=== PATIENT | female | born 1965 | race Caucasian/White ===

== ENCOUNTER → 2023-12-23 12:38 | Outpatient (REF) | payer OTHER, SELFPAY | LOC: HWRAD 12:38 | PROVIDERS: ATTENDING PHYSICIAN Hospitalist; FAMILY PHYSICIAN Nurse Practitioner Primary Care | DX: Z78.0 Asymptomatic menopausal state (principal); Z79.811 Long term (current) use of aromatase inhibitors | CPT/HCPCS: 77080 ==

== ENCOUNTER 2024-01-01 10:51 | Emergency (ER) | payer OTHER, SELFPAY ==
[2024-01-01] VITALS (10 sets, daily range): BP systolic 94–128; BP diastolic 51–81; PULSE 62–75; BMI 23.4
--- NOTE | 2024-01-01 11:36 | ED.GENMED ---
History of Present Illness
General
Chief Complaint: Dizziness
Time Seen by Provider: 01/01/24 11:36
Travel History
Have you had any contact with someone who has COVID-19?: No
Do you have any symptoms of coronavirus? Fever > 100 degrees, chills, cough, shortness of breath, sore throat, loss of taste or smell, muscle aches, or headache?: No
History of Present Illness
History of Present Illness:
HPI: The patient presents from radiation oncology due to concerns of abnormal sensation of the head. She describes it as a 'swooning' sensation. She has had bilateral mastectomy and has had radiation on the right side. She also reports some
left-sided sensation of the chest described as 'heat'. She said the symptoms frequently happen while she is standing but not necessarily just after she stands up
EXAM:
GENERAL: Well appearing in no distress, I did have the patient stand and her heart rate and blood pressure did not significantly change
HEENT: Moist oral mucosa
CARDIOVASCULAR: No murmurs, normal heart rate and rhythm, No chest wall tenderness
PULMONARY: No respiratory distress, breath sounds are clear and equal
ABDOMEN: Soft with no peritoneal signs, no tenderness
NEUROLOGIC: Excellent strength all extremities, no coordination deficits
PSYCHIATRIC: Appropriate mental status, normal insight and judgement
EXTREMITIES: Nontender, no edema, moves all extremities equally
SKIN: No rash, no lesions
ED COURSE:
11:45 AM: I initially evaluated patient
NUMBER AND COMPLEXITY OF PROBLEMS ADDRESSED AT THE ENCOUNTER
� Chronic conditions affecting care: Breast cancer
� Acute Exacerbation and/or Progression of Chronic Illness: This is an acute problem
� Differential Diagnosis includes: Dehydration, GREGORIO, anemia, metastatic disease, ACS unlikely
AMOUNT AND/OR COMPLEXITY OF DATA TO BE REVIEWED AND ANALYZED
� I performed an independent evaluation of and my interpretation is:
EKG: Sinus 63, normal axis, no acute ST abnormality
CT:
X-rays:
Laboratory Studies: White count slightly low at 3.7, chemistries unremarkable, troponin unremarkable
Other:
� Review of other/old records: Last neuroimaging of the brain was in May 2023 which was unremarkable at that time
� Clinical information was obtained by an independent historian:
� Prescriptions/Medications Considered but not given:
� Further testing considered but not performed:
RISK OF COMPLICATIONS AND/OR MORBIDITY OR MORTALITY OF PATIENT MANAGEMENT
� Social determinants of health affecting care: Lives at home
� Discussion with other providers: I reviewed the note by Dr. Rashida Kaufman and she did have some concern for cardiac etiology
� Escalation of care including admission/observation vs risk of discharge considered: EKG and troponin are normal. Brain CT was obtained given the patient's malignancy history which does not show any signs of masses by
noncontrast CT. The patient is very well-appearing and workup is unremarkable.
Past History
Past History
ED Past Medical History: None and Other (Patient has had past chest pain which was negative for cardiac disease.)
ED Past Surgical History: Other (Noncontributory)
Social History
Tobacco: Non-smoker
Alcohol: Occasional
Drug: None
Personal:
Living: with family
Employment: Employed
Family History
Family History: Other (Noncontributory)
Phy Exam
Physical Exam
Physical Exam:
See HPI
Course
Orders/Labs/Results
Orders:
Orders
01/01/24 11:00
Electrocardiogram (*1) Urgent
Reason for Study: Vertigo / Dizzy
01/01/24 11:01
EKG- Treatment ONCE
01/01/24 11:44
CMP [Comprehensive Metabolic Panel] Urgent
Complete Blood Count/With Diff Urgent
01/01/24 12:00
CT Head W/o Iv Contrast Urgent
Comment:
Reason For Exam: breast CA, new dizziness
01/01/24 12:01
0.9% Sodium Chloride 1000 ml [Nss] 1,000 ml IV BOLUS
01/01/24 12:30
Troponin I Urgent
Abnormal Lab Results
01/01/24
11:44
WBC 3.7 L 10^3/uL
(4.8-10.8)
Monocytes % 14.7 H %
(1.7-9.3)
Carbon Dioxide 31 H mmol/L
(22-30)
01/01/24 11:44
01/01/24 11:44
Vital Signs
Initial and Last Documented VS:
Initial Vital Signs
Temp Pulse Resp BP Pulse Ox
97.8 F 59 18 128/67 100
01/01/24 10:54 01/01/24 10:54 01/01/24 10:54 01/01/24 10:54 01/01/24 10:54
Last Documented Vital Signs
Temp Pulse Resp BP Pulse Ox
97.8 F 65 18 118/77 99
01/01/24 10:54 01/01/24 14:00 01/01/24 14:00 01/01/24 14:00 01/01/24 12:00
*Critical Care Note
Total Time (30-74mins, 75-104mins- exclusive of procedures): Not Applicable
ED Attending Note
-
Portions of this chart may have been created with voice recognition software.� Occasional wrong word or��sound alike� substitutions may have occurred due to the inherent limitations of voice recognition software.
Discharge Plan
Departure
Patient Disposition: Home (Routine Discharge)
Date of Disposition: 01/01/24
Time of Disposition: 14:33
Patient with high blood pressure during this ER visit?: Yes
Discharge Problem:
Dizziness
Instructions: Dizziness, BLOOD PRESSURE
Prescriptions:
No Action
No Current Medications
0
Referrals:
Wandy Thompson CRNP [Family Provider] -
Activity Restrictions/Additional Instructions:
The CAT scan of the brain shows no acute abnormality, basic blood work is unremarkable. EKG is normal. Return here if worse. Cardiac blood work shows no abnormality.
Interventions
Interventions:
*Risk Screen - Suicide Last Done: 01/01/24 10:54
*General Assessment Last Done: 01/01/24 10:54
*Neglect/Abuse Screening Last Done: 01/01/24 10:54
ED- Fall Risk Assessment Last Done: 01/01/24 11:14
*ED COVID-19 Vaccine History Last Done: 01/01/24 11:14
ED- Neurological Assessment Last Done: 01/01/24 11:16
ED- Cardiac Assessment Last Done: 01/01/24 11:16
[2024-01-01 11:52] LABS: % Basophils 0.8 % (0-2); % Eosinophils 1.9 % (0-6); % Immature Granulocytes 0.3 % (0-0.5); % Lymphocytes 31.9 % (20.5-51.1); % Monocytes 14.7 % (1.7-9.3); % Neutrophils 50.4 % (42.2-75.2); Absolute Eosinophils 0.1 10^3/uL (0-0.7); Absolute Lymphocytes 1.2 10^3/uL (1.2-3.4); Absolute Monocytes 0.5 10^3/uL (0.1-0.6); Absolute Neutrophils 1.9 10^3/uL (1.4-6.5); Hematocrit 38.5 % (37.0-47.0); Hemoglobin 13.2 g/dL (12.0-16.0); Mean Corp Hgb Conc. 34.3 g/dL (33.0-37.0); Mean Corpuscular Hgb 29.5 pg (27.0-31.0); Mean Corpuscular Volume 86.1 fL (81.0-99.0); Mean Platelet Volume 10.3 fL (7.4-10.4); Nucleated Red Blood Cells % 0 %; Platelet Count 154 10^3/uL (130-400); Red Blood Cell Count 4.47 10^6/uL (4.20-5.40); Red Cell Dist. Width 13.1 % (11.5-14.5); White Blood Cell Count 3.7 10^3/uL (4.8-10.8)
[2024-01-01] MEDS: NSS 1000 IV (12:06)
[2024-01-01 12:10] LABS: ALT (SGPT) 19 U/L (0-35); AST (SGOT) 28 U/L (14-36); Alkaline Phosphatase 68 U/L (38-126); Blood Urea Nitrogen 16 mg/dl (7-17); Calcium 8.8 mg/dl (8.4-10.2); Carbon Dioxide 31 mmol/L (22-30); Chloride 104 mmol/L (98-107); Estimated Creatinine Clearance 84 ml/min; Glucose 87 mg/dl (70-99); Potassium 4.2 mmol/L (3.5-5.1); Sodium 136 mmol/L (135-145); Total Bilirubin 0.8 mg/dl (0.2-1.3); Total Protein 6.7 g/dl (6.3-8.2); eGFR > 60.00
[2024-01-01 14:31] LABS: Troponin I < 0.012 ng/ml
== END 2024-01-01 14:46 | disposition home or self-care (01) ==
LOC: EMR 10:51
PROVIDERS: EMERGENCY PHYSICIAN Emergency Medicine; FAMILY PHYSICIAN Nurse Practitioner Primary Care
DX: R42 Dizziness and giddiness (principal); Z90.13 Acquired absence of bilateral breasts and nipples
CPT/HCPCS: 99284; 96360; 96361; 70450; 80053; 84484; 85025; 93005

== ENCOUNTER → 2024-01-06 15:53 | Outpatient (REF) | payer OTHER, SELFPAY | LOC: HWRAD 15:53 | PROVIDERS: ATTENDING PHYSICIAN Nurse Practitioner Primary Care | DX: C50.411 Malignant neoplasm of upper-outer quadrant of right female breast (principal); R91.1 Solitary pulmonary nodule; Z17.0 Estrogen receptor positive status [ER+] | CPT/HCPCS: 71250 ==

== ENCOUNTER → 2024-05-11 06:21 | Day surgery (SDC) | payer OTHER, SELFPAY | LOC: GI 06:21 | PROVIDERS: ATTENDING PHYSICIAN Internal Medicine Gastroenterology | DX: Z12.11 Encounter for screening for malignant neoplasm of colon (principal); K57.30 Diverticulosis of large intestine without perforation or abscess without bleeding; D12.8 Benign neoplasm of rectum; K64.8 Other hemorrhoids; K59.00 Constipation, unspecified | CPT/HCPCS: 45385; 88305 ==

== ENCOUNTER → 2024-12-21 07:49 | Outpatient (REF) | payer OTHER, SELFPAY | LOC: EMG 07:49 | PROVIDERS: ATTENDING PHYSICIAN Orthopaedic Surgery; FAMILY PHYSICIAN Nurse Practitioner Primary Care | DX: R20.0 Anesthesia of skin (principal) | CPT/HCPCS: 95886; 95911 ==

== ENCOUNTER → 2025-07-14 11:56 | Outpatient (REF) | payer OTHER, SELFPAY | LOC: MRI 3T 11:56 | PROVIDERS: ATTENDING PHYSICIAN Surgery; FAMILY PHYSICIAN Nurse Practitioner Primary Care | DX: C50.911 Malignant neoplasm of unspecified site of right female breast (principal); C77.3 Secondary and unspecified malignant neoplasm of axilla and upper limb lymph nodes | CPT/HCPCS: 77049; A9585 ==

== ENCOUNTER → 2025-08-03 13:08 | Outpatient (REF) | payer OTHER, SELFPAY | LOC: RAD 13:08 | PROVIDERS: ATTENDING PHYSICIAN Nurse Practitioner Adult Health | DX: M25.552 Pain in left hip (principal) | CPT/HCPCS: 73502 ==